=== PATIENT | male | born 1970 | race Caucasian/White ===

== ENCOUNTER → 2018-08-19 | Day surgery (SDC) | payer OTHER ==
[~2018-08-19] MED LIST: ACETAMINOPHEN/CODEINE 300MG - 30MG TAB ONE; DEXAMETHASONE SOD PHOS 10 MG/1 ML VIAL ONE; DEXAMETHASONE SOD PHOS INJ 4 MG/ML VIAL ONE; EPINEPHRINE HCL 1:1000 1ML 1 MG/ML AMP ONE; FENTANYL CITRATE/PF 100MCG/2 ML INJ ONE; GLYCOPYRROLATE INJ 1MG/ 5 ML SYR ONE; LIDOCAINE 1% W/EPINEPHRINE 20 ML VIAL ONE; LIDOCAINE HCL 2% LOCAL INJ 5 ML SDV VIAL INJ ONE; MIDAZOLAM HCL 2 MG/2 ML VIAL ONE; NEOSTIGMINE 5 MG/5ML SYR ONE; ONDANSETRON HCL INJ 2MG/ML 2ML 2 MG/ML VIAL ONE; PROPOFOL IV EMULSION 10 MG/ML 20 ML VIAL ONE; ROCURONIUM BROMIDE 10 MG/ML 5ML VIAL ONE; SEVOFLURANE INHAL SOLN 250 ML PEN BTL ONE
[2018-08-19 15:40] VITALS: BP 151/104
--- NOTE | 2018-08-19 17:28 | Operative Report ---
DATE OF PROCEDURE: 08/19/2018 SURGEON: Chi Landin MD PREOPERATIVE DIAGNOSIS: Nasal obstruction and deviated nasal septum. POSTOPERATIVE DIAGNOSIS: Nasal obstruction and deviated nasal septum. OPERATIVE PROCEDURE: Septoplasty. ANESTHESIA: Anesthesiology group. INDICATIONS: This 48-year-old male with history of nasal obstruction, worse on the left side but bilaterally. On examination, he was noted to have a deviated nasal septum to the left side with a septal spur about 40% and a spur on the right about 30%. The patient's condition has been treated with topical nasal steroid, decongestant, and antibiotics with no improvement. It was decided that septoplasty and other necessary procedure will be beneficial for him. DESCRIPTION OF PROCEDURE: The patient was taken to the operating room, put under general anesthesia, endotracheally intubated. The nose was injected with 1% Xylocaine with 1:100,000 epinephrine for hemostasis. Epinephrine-soaked pledget was inserted into the nose. These were subsequently removed. Hemitransfixion incision was done on the left side, mucoperichondrial flap was elevated on the left. Bony cartilaginous junction was encountered and this was . Perpendicular plate of the ethmoid was transected and this was removed along with the vomer. The septal spur cartilaginous portion was removed using a Morton elevator, bony spur removed using a 4 mm straight chisel. The quadrangular cartilage after being free from posterior and inferior constrain was able to swing back in midline. Inadvertent drainage hiatus was noted in the right mucoperichondrial flap, no drainage hiatus was noted on the left side. The hemitransfixion incision was closed using 4-0 chromic suture in an interrupted fashion. Septal whipstitch was done using 4-0 plain gut suture to reapproximate the mucoperichondrial flap and prevent septal hematoma formation. The patient tolerated the above procedure well with estimated blood loss about 20 mL. He was given 20 mg of Decadron intraoperatively. The patient was able to be transferred to recovery room in stable condition. Chi Landin MD DK/MODL /[id number]
--- NOTE | 2018-08-20 12:17 | Pre Op History & Physical ---
DATE OF SURGERY: August 19, 2018. CHIEF COMPLAINT: Nasal obstruction, deviated nasal septum. HISTORY OF PRESENT ILLNESS: This 48-year-old male has history of nasal obstruction. The problem is bilateral. The patient has decreased sense of smell. He complained of frontal maxillary pain. He has no previous injury to the nose. The patient does have postnasal drip. His condition has been treated with topical nasal steroid, decongestant, antibiotics with no improvement. A CT scan of paranasal sinus was done before surgery, it showed the patient has deviated nasal septum with not much sinus involvement. REVIEW OF SYSTEMS: System review showed no recent cardiovascular, respiratory, or GI problem. PAST MEDICAL HISTORY: The patient has no significant medical problem. PAST SURGICAL HISTORY: The patient has no previous surgery. ALLERGIES: ALLERGIC TO PENICILLIN. MEDICATIONS: He is on [id number] allergy medications. SOCIAL HISTORY: He is a nonsmoker and a social drinker. FAMILY HISTORY: Noncontributory. PHYSICAL EXAMINATION: VITAL SIGNS: The patient's vital signs were within normal limits. HEENT: Ear exam showed normal tympanic membrane bilaterally. Nasal exam showed deviated nasal septum on the left side about 30%. No nasal valve collapse was noted. Oropharynx and oral cavity show 1+ tonsils bilaterally with Mallampati level 2. NECK: Showed no lymph node or thyroid palpable. CHEST: Showed good air entry bilaterally. CARDIOVASCULAR: Showing S1, S2. No murmur noted. ASSESSMENT AND PLAN: Mr. Hinton has nasal obstruction, deviated nasal septum, which has been resistant to conservative therapy. The suggested treatment is septoplasty and other necessary procedure. Complication of procedure includes, but not limited to bleeding, infection, septal perforation, septal hematoma, CSF leak, blindness, double vision, meningitis, persistent nasal obstruction, persistent nasal crusting, nasal deformity, persistent recurrence of the sinus problem. The alternatives will be continue observation, continue antibiotic therapy, topical nasal steroid therapy, systemic steroid therapy, and decongestant. The patient has elected to undergo surgical procedure. MD MODESTA Morales/FRANSICO /[id number]
== END | disposition home or self-care (01) ==
LOC: OR 08:54
PROVIDERS: ATTEND Otolaryngology Otolaryngology/Facial Plastic Surgery
DX: J34.2 Deviated nasal septum (principal); J34.89 Other specified disorders of nose and nasal sinuses; Z88.0 Allergy status to penicillin
CPT/HCPCS: 30520; 88302; 88311; 93005; J0171; J1100; J2001; J2250; J2405; J2704; J3490